=== PATIENT | female | born 1975 | race Caucasian/White ===

== ENCOUNTER 2019-06-01 08:49 | Outpatient (CLI) | payer OTHER ==
[2019-06-01 09:56] LABS: BASOPHILS % (AUTO) 0.8 % (0-1); EOSINOPHILS % (AUTO) 0.9 % (0-6); HEMATOCRIT 36.8 % (35.0-45.0); HEMOGLOBIN 12.4 g/dl (12.0-16.0); LYMPHOCYTES # (AUTO) 2.1 X10'3 (1.1-4.8); LYMPHOCYTES % (AUTO) 37.2 % (21-51); MEAN CORPUSCULAR HEMOGLOBIN 28.8 PG (27.0-31.0); MEAN CORPUSCULAR HGB CONC 33.6 g/dL (33.0-36.5); MEAN CORPUSCULAR VOLUME 85.6 FL (78-98); MEAN PLATELET VOLUME 7.4 FL (7.4-10.4); MONOCYTES # (AUTO) 0.3 X10'3 (0-0.9); NEUTROPHILS # (AUTO) 3.1 X10'3 (1.8-7.7); NEUTROPHILS % (AUTO) 55.1 % (42-75); PLATELET COUNT 228 X10'3 (140-440); RED BLOOD COUNT 4.29 X10'6 (4.20-5.60); RED CELL DISTRIBUTION WIDTH 13.9 % (11.5-14.5); WHITE BLOOD COUNT 5.6 X10'3 (4.5-11.0)
[2019-06-02 09:24] LABS: THIIODOTHRONINE, FREE, SERUM 2.5 pg/mL (2.0-4.4); THYROXINE (T4) 7.3 ug/dL (4.5-12.0); TRIIODOTHYRONINE (T3) 81 ng/dL (71-180)
== END 2019-06-01 23:59 | disposition home or self-care (01) ==
LOC: LAB 08:49
PROVIDERS: ATTEND Specialist
DX: E03.9 Hypothyroidism, unspecified (principal); D64.9 Anemia, unspecified; R79.89 Other specified abnormal findings of blood chemistry
CPT/HCPCS: 36415; 82728; 84436; 84439; 84443; 84479; 84480; 84481; 84482; 85025

== ENCOUNTER 2019-09-14 09:31 | Outpatient (CLI) | payer OTHER ==
[2019-09-14 10:06] LABS: BASOPHILS % (AUTO) 0.5 % (0-1); EOSINOPHILS # (AUTO) 0.1 X10'3 (0-0.9); EOSINOPHILS % (AUTO) 0.8 % (0-6); HEMATOCRIT 36.7 % (35.0-45.0); HEMOGLOBIN 12.3 g/dl (12.0-16.0); LYMPHOCYTES # (AUTO) 1.8 X10'3 (1.1-4.8); LYMPHOCYTES % (AUTO) 28.3 % (21-51); MEAN CORPUSCULAR HEMOGLOBIN 28.2 PG (27.0-31.0); MEAN CORPUSCULAR HGB CONC 33.4 g/dL (33.0-36.5); MEAN CORPUSCULAR VOLUME 84.4 FL (78-98); MEAN PLATELET VOLUME 7.5 FL (7.4-10.4); MONOCYTES # (AUTO) 0.4 X10'3 (0-0.9); MONOCYTES % (AUTO) 5.5 % (2-12); NEUTROPHILS # (AUTO) 4.2 X10'3 (1.8-7.7); NEUTROPHILS % (AUTO) 64.9 % (42-75); PLATELET COUNT 266 X10'3 (140-440); RED BLOOD COUNT 4.35 X10'6 (4.20-5.60); RED CELL DISTRIBUTION WIDTH 13.2 % (11.5-14.5); WHITE BLOOD COUNT 6.5 X10'3 (4.5-11.0)
[2019-09-14 10:53] LABS: % IRON SATURATION 19 % (11-46); IRON 58 UG/DL (49-151); TOTAL IRON BINDING CAPACITY 310 UG/DL (259-388)
[2019-09-14 11:23] LABS: ALANINE AMINOTRANSFERASE 25 U/L (12-78); ALBUMIN 3.8 G/DL (3.4-5.0); ALBUMIN/GLOBULIN RATIO 1.2 (1.1-1.5); ALKALINE PHOSPHATASE 47 IU/L (46-116); ANION GAP 7 (8-16); ASPARTATE AMINO TRANSFERASE 16 U/L (10-37); BILIRUBIN,TOTAL 0.8 MG/DL (0.1-1.0); BLOOD UREA NITROGEN 14 MG/DL (7-18); BUN/CREATININE RATIO 19.2 (6.6-38.0); CALCIUM 8.7 MG/DL (8.5-10.1); CHLORIDE 107 MMOL/L (99-107); CREATININE 0.73 MG/DL (0.40-0.90); FERRITIN 18 NG/ML (8-252); GLUCOSE 86 MG/DL (70-104); POTASSIUM 4.4 MMOL/L (3.5-5.1); SODIUM 141 MMOL/L (135-145); TOTAL CARBON DIOXIDE 27.3 MMOL/L (24-32); TOTAL PROTEIN 7.1 G/DL (6.4-8.2); eGFR 87 ML/MIN
[2019-09-15 08:14] LABS: THIIODOTHRONINE, FREE, SERUM 2.4 pg/mL (2.0-4.4)
== END 2019-09-14 23:59 | disposition home or self-care (01) ==
LOC: LAB 09:31
PROVIDERS: ATTEND Specialist
DX: N92.0 Excessive and frequent menstruation with regular cycle (principal); D64.9 Anemia, unspecified; E03.9 Hypothyroidism, unspecified
CPT/HCPCS: 36415; 80053; 82728; 83540; 83550; 84439; 84443; 84479; 84481; 84482; 85025

== ENCOUNTER 2020-01-11 09:36 | Outpatient (CLI) | payer OTHER ==
[2020-01-11 10:58] LABS: BASOPHILS % (AUTO) 0.7 % (0-1); EOSINOPHILS % (AUTO) 0.5 % (0-6); HEMATOCRIT 39.1 % (35.0-45.0); HEMOGLOBIN 12.7 g/dl (12.0-16.0); LYMPHOCYTES # (AUTO) 1.8 X10'3 (1.1-4.8); LYMPHOCYTES % (AUTO) 33.9 % (21-51); MEAN CORPUSCULAR HEMOGLOBIN 27.7 PG (27.0-31.0); MEAN CORPUSCULAR HGB CONC 32.5 g/dL (33.0-36.5); MEAN CORPUSCULAR VOLUME 85.4 FL (78-98); MEAN PLATELET VOLUME 7.8 FL (7.4-10.4); MONOCYTES # (AUTO) 0.4 X10'3 (0-0.9); MONOCYTES % (AUTO) 7.9 % (2-12); PLATELET COUNT 243 X10'3 (140-440); RED BLOOD COUNT 4.58 X10'6 (4.20-5.60); RED CELL DISTRIBUTION WIDTH 14.6 % (11.5-14.5); WHITE BLOOD COUNT 5.2 X10'3 (4.5-11.0)
[2020-01-11 11:15] LABS: % IRON SATURATION 11 % (11-46); IRON 33 UG/DL (49-151); TOTAL IRON BINDING CAPACITY 313 UG/DL (259-388)
[2020-01-11 11:33] LABS: ALANINE AMINOTRANSFERASE 23 U/L (12-78); ALBUMIN/GLOBULIN RATIO 1.2 (1.1-1.5); ALKALINE PHOSPHATASE 48 IU/L (46-116); ANION GAP 7 (8-16); ASPARTATE AMINO TRANSFERASE 19 U/L (10-37); BILIRUBIN,TOTAL 0.8 MG/DL (0.1-1.0); BLOOD UREA NITROGEN 16 MG/DL (7-18); BUN/CREATININE RATIO 20.8 (6.6-38.0); CALCIUM 8.9 MG/DL (8.5-10.1); CHLORIDE 107 MMOL/L (99-107); CREATININE 0.77 MG/DL (0.40-0.90); FERRITIN 16 NG/ML (8-252); GLUCOSE 90 MG/DL (70-104); POTASSIUM 4.4 MMOL/L (3.5-5.1); SODIUM 142 MMOL/L (135-145); TOTAL CARBON DIOXIDE 27.6 MMOL/L (24-32); TOTAL PROTEIN 7.3 G/DL (6.4-8.2); eGFR 81 ML/MIN
== END 2020-01-11 23:59 | disposition home or self-care (01) ==
LOC: LAB 09:36
PROVIDERS: ATTEND Specialist
DX: E03.9 Hypothyroidism, unspecified (principal); E34.9 Endocrine disorder, unspecified; N92.0 Excessive and frequent menstruation with regular cycle; D64.9 Anemia, unspecified
CPT/HCPCS: 36415; 80053; 82728; 83540; 83550; 84479; 84482; 85025

== ENCOUNTER 2020-03-07 09:04 | Outpatient (CLI) | payer BC ==
[2020-03-07 10:34] LABS: BASOPHILS % (AUTO) 0.7 % (0-1); EOSINOPHILS # (AUTO) 0.1 X10'3 (0-0.9); EOSINOPHILS % (AUTO) 0.9 % (0-6); HEMATOCRIT 39.1 % (35.0-45.0); LYMPHOCYTES % (AUTO) 34.1 % (21-51); MEAN CORPUSCULAR HEMOGLOBIN 28.7 PG (27.0-31.0); MEAN CORPUSCULAR HGB CONC 33.2 g/dL (33.0-36.5); MEAN CORPUSCULAR VOLUME 86.3 FL (78-98); MEAN PLATELET VOLUME 7.4 FL (7.4-10.4); MONOCYTES # (AUTO) 0.4 X10'3 (0-0.9); MONOCYTES % (AUTO) 6.6 % (2-12); NEUTROPHILS # (AUTO) 3.4 X10'3 (1.8-7.7); NEUTROPHILS % (AUTO) 57.7 % (42-75); PLATELET COUNT 252 X10'3 (140-440); RED BLOOD COUNT 4.53 X10'6 (4.20-5.60); RED CELL DISTRIBUTION WIDTH 13.8 % (11.5-14.5); WHITE BLOOD COUNT 5.9 X10'3 (4.5-11.0)
[2020-03-08 17:17] LABS: ESTRADIOL 83.6 pg/mL (.); FSH, SERUM 6.6 mIU/mL (.); PROGESTERONE 21.2 ng/mL (.); PROLACTIN 3.8 ng/mL (4.8-23.3); THIIODOTHRONINE, FREE, SERUM 2.8 pg/mL (2.0-4.4); THYROID PEROXIDASE AB 11 IU/mL (0-34); THYROXINE (T4) 7.7 ug/dL (4.5-12.0)
== END 2020-03-07 23:59 | disposition home or self-care (01) ==
LOC: LAB 09:04
PROVIDERS: ATTEND Specialist
DX: E03.9 Hypothyroidism, unspecified (principal); E34.9 Endocrine disorder, unspecified; R53.83 Other fatigue; N92.0 Excessive and frequent menstruation with regular cycle
CPT/HCPCS: 36415; 82627; 82670; 82679; 82728; 83001; 83002; 83540; 83550; 84140; 84144; 84146; 84305; 84402; 84403; 84436; 84439; 84443; 84479; 84481; 84482; 85025; 86376

== ENCOUNTER 2020-07-18 10:38 | Outpatient (CLI) | payer BC ==
[2020-07-18 12:42] LABS: BASOPHILS % (AUTO) 0.6 % (0-1); EOSINOPHILS % (AUTO) 0.6 % (0-6); HEMOGLOBIN 12.5 g/dl (12.0-16.0); LYMPHOCYTES % (AUTO) 29.3 % (21-51); MEAN CORPUSCULAR HEMOGLOBIN 28.4 PG (27.0-31.0); MEAN CORPUSCULAR HGB CONC 32.9 g/dL (33.0-36.5); MEAN CORPUSCULAR VOLUME 86.4 FL (78-98); MEAN PLATELET VOLUME 7.7 FL (7.4-10.4); MONOCYTES # (AUTO) 0.5 X10'3 (0-0.9); MONOCYTES % (AUTO) 7.5 % (2-12); NEUTROPHILS # (AUTO) 4.3 X10'3 (1.8-7.7); PLATELET COUNT 263 X10'3 (140-440); RED BLOOD COUNT 4.39 X10'6 (4.20-5.60); RED CELL DISTRIBUTION WIDTH 14.3 % (11.5-14.5); WHITE BLOOD COUNT 6.9 X10'3 (4.5-11.0)
[2020-07-18 13:10] LABS: % IRON SATURATION 14 % (11-46); IRON 41 UG/DL (49-151); TOTAL IRON BINDING CAPACITY 291 UG/DL (259-388)
[2020-07-18 13:19] LABS: ALANINE AMINOTRANSFERASE 25 U/L (12-78); ALBUMIN 4.1 G/DL (3.4-5.0); ALBUMIN/GLOBULIN RATIO 1.2 (1.1-1.5); ALKALINE PHOSPHATASE 48 IU/L (46-116); ANION GAP 8 (8-16); ASPARTATE AMINO TRANSFERASE 14 U/L (10-37); BILIRUBIN,TOTAL 0.6 MG/DL (0.1-1.0); BLOOD UREA NITROGEN 22 MG/DL (7-18); BUN/CREATININE RATIO 29.3 (6.6-38.0); CALCIUM 8.6 MG/DL (8.5-10.1); CHLORIDE 107 MMOL/L (99-107); CREATININE 0.75 MG/DL (0.40-0.90); FERRITIN 27 NG/ML (8-252); GLUCOSE 75 MG/DL (70-104); SODIUM 142 MMOL/L (135-145); TOTAL CARBON DIOXIDE 26.6 MMOL/L (24-32); TOTAL PROTEIN 7.5 G/DL (6.4-8.2); eGFR 84 ML/MIN
[2020-07-19 15:06] LABS: FSH, SERUM 4.9 mIU/mL (.); LUTEINIZING HORMONE 8.6 mIU/mL (.); PROGESTERONE 19.9 ng/mL (.); PROLACTIN 3.6 ng/mL (4.8-23.3); THIIODOTHRONINE, FREE, SERUM 2.5 pg/mL (2.0-4.4); THYROID PEROXIDASE AB <9 IU/mL (0-34); THYROXINE (T4) 6.8 ug/dL (4.5-12.0); TRIIODOTHYRONINE (T3) 67 ng/dL (71-180)
== END 2020-07-18 23:59 | disposition home or self-care (01) ==
LOC: EEVIPCON 10:38 → LAB 10:38
PROVIDERS: ATTEND Specialist
DX: E34.9 Endocrine disorder, unspecified (principal); E03.9 Hypothyroidism, unspecified
CPT/HCPCS: 36415; 80053; 82306; 82627; 82670; 82679; 82728; 83001; 83002; 83540; 83550; 84140; 84144; 84146; 84402; 84403; 84436; 84439; 84443; 84480; 84481; 84482; 85025; 86376

== ENCOUNTER 2020-12-28 10:24 | Outpatient (CLI) | payer BC ==
[2020-12-29 10:28] LABS: THIIODOTHRONINE, FREE, SERUM 2.5 pg/mL (2.0-4.4); THYROXINE (T4) 6.5 ug/dL (4.5-12.0); TRIIODOTHYRONINE (T3) 82 ng/dL (71-180)
== END 2020-12-28 23:59 | disposition home or self-care (01) ==
LOC: LAB 10:24
PROVIDERS: ATTEND Specialist
DX: E03.9 Hypothyroidism, unspecified (principal); E84.9 Cystic fibrosis, unspecified
CPT/HCPCS: 36415; 82627; 82728; 84402; 84403; 84436; 84439; 84443; 84480; 84481; 84482

== ENCOUNTER 2022-01-08 08:16 | Outpatient (CLI) | payer BC | END 2022-01-08 23:59 | disposition home or self-care (01) | LOC: LAB 08:16 | PROVIDERS: ATTEND Specialist | DX: E34.9 Endocrine disorder, unspecified (principal); N92.0 Excessive and frequent menstruation with regular cycle | CPT/HCPCS: 36415; 84144 ==

== ENCOUNTER 2022-03-21 09:58 | Outpatient (CLI) | payer BC ==
[2022-03-22 07:28] LABS: FTI 1.8 (1.2-4.9); THIIODOTHRONINE, FREE, SERUM 2.2 pg/mL (2.0-4.4); THYROXINE (T4) 6.6 ug/dL (4.5-12.0); TRIIODOTHYRONINE (T3) 73 ng/dL (71-180)
== END 2022-03-21 23:59 | disposition home or self-care (01) ==
LOC: LAB 09:58
PROVIDERS: ATTEND Specialist
DX: D64.9 Anemia, unspecified (principal); E03.9 Hypothyroidism, unspecified; E55.9 Vitamin D deficiency, unspecified; R53.82 Chronic fatigue, unspecified
CPT/HCPCS: 36415; 82306; 82728; 84436; 84439; 84443; 84479; 84480; 84481; 84482

== ENCOUNTER 2022-07-17 08:26 | Outpatient (CLI) | payer BC ==
[2022-07-17 09:35] LABS: BASOPHILS # (AUTO) 0.1 X10'3 (0-0.2); BASOPHILS % (AUTO) 1.4 % (0-1); EOSINOPHILS % (AUTO) 0.5 % (0-6); HEMATOCRIT 38.6 % (35.0-45.0); LYMPHOCYTES % (AUTO) 23.5 % (21-51); MEAN CORPUSCULAR HEMOGLOBIN 29.2 PG (27.0-31.0); MEAN CORPUSCULAR HGB CONC 33.6 g/dL (33.0-36.5); MEAN CORPUSCULAR VOLUME 86.9 FL (78-98); MEAN PLATELET VOLUME 7.7 FL (7.4-10.4); MONOCYTES # (AUTO) 0.5 X10'3 (0-0.9); MONOCYTES % (AUTO) 6.1 % (2-12); NEUTROPHILS # (AUTO) 5.8 X10'3 (1.8-7.7); NEUTROPHILS % (AUTO) 68.5 % (42-75); PLATELET COUNT 235 X10'3 (140-440); RED BLOOD COUNT 4.45 X10'6 (4.20-5.60); RED CELL DISTRIBUTION WIDTH 13.8 % (11.5-14.5); WHITE BLOOD COUNT 8.4 X10'3 (4.5-11.0)
[2022-07-17 09:36] LABS: CLARITY,URINE SLIGHTLY CLOUDY (Clear); COLOR,URINE YELLOW (Yellow); GLUCOSE, URINE NEGATIVE (Neg); KETONES,URINE NEGATIVE (Neg); LEUKOCYTE ESTERASE ,URINE NEGATIVE (Neg); NITRITES, URINE NEGATIVE (Neg); OCCULT BLOOD,URINE TRACE-INTACT (Neg); PROTEIN,URINE NEGATIVE (Neg); UROBILINOGEN,URINE 0.2 E.U/dL (0.2-1.0)
[2022-07-17 09:42] LABS: UA COLLECTION TYPE CLN CATCH MIDSTREAM
[2022-07-17 09:43] LABS: BACTERIA,URINE 2+ /HPF (Neg); RBC,URINE 0-2 /HPF (0-2); SQUAMOUS EPITHELIAL CELL,UR MANY /LPF (FEW); WBC,URINE 0-4 /HPF (0-4)
[2022-07-17 10:12] LABS: ALANINE AMINOTRANSFERASE 27 U/L (12-78); ALBUMIN 4.2 G/DL (3.4-5.0); ALBUMIN/GLOBULIN RATIO 1.4 (1.1-1.5); ALKALINE PHOSPHATASE 39 IU/L (46-116); ANION GAP 12 (8-16); ASPARTATE AMINO TRANSFERASE 21 U/L (10-37); BILIRUBIN,TOTAL 0.6 MG/DL (0.1-1.0); BLOOD UREA NITROGEN 18 MG/DL (7-18); BUN/CREATININE RATIO 25.7 (6.6-38.0); CALCIUM 8.4 MG/DL (8.5-10.1); CHLORIDE 104 MMOL/L (99-107); CHOL/HDL RATIO 1.9 (0.00-4.99); CHOLESTEROL 177 MG/DL (0-200); GLUCOSE 91 MG/DL (70-104); HDL CHOLESTEROL 94 MG/DL (35-60); LDL CHOLESTEROL 79 MG/DL (50-100); POTASSIUM 3.9 MMOL/L (3.5-5.1); SODIUM 137 MMOL/L (135-145); TOTAL CARBON DIOXIDE 21.4 MMOL/L (24-32); TOTAL PROTEIN 7.2 G/DL (6.4-8.2); TRIGLYCERIDES 27 MG/DL (20-135); eGFR 90 ML/MIN
== END 2022-07-17 23:59 | disposition home or self-care (01) ==
LOC: LAB 08:26
PROVIDERS: ATTEND Nurse Practitioner
DX: Z00.00 Encounter for general adult medical examination without abnormal findings (principal); Z12.39 Encounter for other screening for malignant neoplasm of breast
CPT/HCPCS: 36415; 80053; 80061; 81001; 82306; 82607; 82746; 84439; 84443; 85025

== ENCOUNTER 2022-07-17 08:33 | Outpatient (CLI) | payer BC ==
[2022-07-17 10:19] LABS: % IRON SATURATION 12 % (11-46); IRON 37 UG/DL (49-151); TOTAL IRON BINDING CAPACITY 321 UG/DL (259-388)
[2022-07-17 10:54] LABS: FERRITIN 35 NG/ML (8-252)
[2022-07-18 13:15] LABS: THIIODOTHRONINE, FREE, SERUM 2.4 pg/mL (2.0-4.4); THYROXINE (T4) 7.4 ug/dL (4.5-12.0); TRIIODOTHYRONINE (T3) 74 ng/dL (71-180)
== END 2022-07-17 23:59 | disposition home or self-care (01) ==
LOC: LAB 08:33
PROVIDERS: ATTEND Specialist
DX: D64.9 Anemia, unspecified (principal); E03.9 Hypothyroidism, unspecified; N92.0 Excessive and frequent menstruation with regular cycle; N94.6 Dysmenorrhea, unspecified
CPT/HCPCS: 36415; 82728; 83540; 83550; 84436; 84480; 84481; 84482

== ENCOUNTER 2022-12-26 09:20 | Outpatient (CLI) | payer BC ==
[2022-12-26 10:33] LABS: BASOPHILS % (AUTO) 0.5 % (0-1); EOSINOPHILS % (AUTO) 0.6 % (0-6); HEMATOCRIT 38.4 % (35.0-45.0); HEMOGLOBIN 12.5 g/dl (12.0-16.0); LYMPHOCYTES % (AUTO) 31.2 % (21-51); MEAN CORPUSCULAR HEMOGLOBIN 28.1 PG (27.0-31.0); MEAN CORPUSCULAR HGB CONC 32.5 g/dL (33.0-36.5); MEAN CORPUSCULAR VOLUME 86.5 FL (78-98); MEAN PLATELET VOLUME 7.2 FL (7.4-10.4); MONOCYTES # (AUTO) 0.4 X10'3 (0-0.9); MONOCYTES % (AUTO) 6.7 % (2-12); NEUTROPHILS # (AUTO) 3.8 X10'3 (1.8-7.7); PLATELET COUNT 270 X10'3 (140-440); RED BLOOD COUNT 4.44 X10'6 (4.20-5.60); RED CELL DISTRIBUTION WIDTH 13.9 % (11.5-14.5); WHITE BLOOD COUNT 6.3 X10'3 (4.5-11.0)
[2022-12-26 11:03] LABS: % IRON SATURATION 25 % (11-46); IRON 76 UG/DL (49-151); TOTAL IRON BINDING CAPACITY 310 UG/DL (259-388)
[2022-12-26 11:05] LABS: ALANINE AMINOTRANSFERASE 26 U/L (12-78); ALBUMIN/GLOBULIN RATIO 1.3 (1.1-1.5); ALKALINE PHOSPHATASE 42 IU/L (46-116); ANION GAP 6 (8-16); ASPARTATE AMINO TRANSFERASE 17 U/L (10-37); BILIRUBIN,TOTAL 0.8 MG/DL (0.1-1.0); BLOOD UREA NITROGEN 14 MG/DL (7-18); BUN/CREATININE RATIO 18.7 (10.0-20.0); CALCIUM 8.7 MG/DL (8.5-10.1); CHLORIDE 104 MMOL/L (99-107); CREATININE 0.75 MG/DL (0.40-0.90); FERRITIN 29 NG/ML (8-252); GLUCOSE 87 MG/DL (70-104); SODIUM 137 MMOL/L (135-145); TOTAL CARBON DIOXIDE 26.6 MMOL/L (24-32); eGFR 83 ML/MIN
[2022-12-27 17:14] LABS: FSH, SERUM 3.9 mIU/mL (.); LUTEINIZING HORMONE 9.9 mIU/mL (.); PROGESTERONE 26.6 ng/mL (.); THIIODOTHRONINE, FREE, SERUM 2.6 pg/mL (2.0-4.4); THYROID PEROXIDASE AB <9 IU/mL (0-34); THYROXINE (T4) 7.8 ug/dL (4.5-12.0); TRIIODOTHYRONINE (T3) 86 ng/dL (71-180)
== END 2022-12-26 23:59 | disposition home or self-care (01) ==
LOC: LAB 09:20
PROVIDERS: ATTEND Specialist
DX: E61.1 Iron deficiency (principal); E03.9 Hypothyroidism, unspecified; E34.9 Endocrine disorder, unspecified; D64.9 Anemia, unspecified; E28.0 Estrogen excess; E55.9 Vitamin D deficiency, unspecified; F43.0 Acute stress reaction
CPT/HCPCS: 36415; 80053; 82306; 82607; 82627; 82670; 82728; 82746; 83001; 83002; 83540; 83550; 84140; 84144; 84305; 84402; 84403; 84436; 84439; 84480; 84481; 84482; 85025; 86376

== ENCOUNTER 2023-07-03 10:30 | Outpatient (CLI) | payer BC ==
[2023-07-03 11:30] LABS: FREE T4 (FREE THYROXINE) 0.98 NG/DL (0.73-1.40); THYROID STIMULATING HORMONE 1.43 ulU/ml (0.34-4.50)
== END 2023-07-03 23:59 | disposition home or self-care (01) ==
LOC: LAB 10:30
PROVIDERS: ATTEND Specialist
DX: Z39.2 Encounter for routine postpartum follow-up (principal); E03.9 Hypothyroidism, unspecified; D64.9 Anemia, unspecified
CPT/HCPCS: 36415; 82306; 82728; 84439; 84443; 84479; 84481; 84482

== ENCOUNTER 2023-12-18 08:21 | Outpatient (CLI) | payer BC ==
[2023-12-18 09:29] LABS: BASOPHILS % (AUTO) 0.6 % (0-1); EOSINOPHILS % (AUTO) 0.4 % (0-6); HEMATOCRIT 37.8 % (35.0-45.0); HEMOGLOBIN 12.5 g/dl (12.0-16.0); HEMOGLOBIN A1C 5.1 % (4.5-6.2); LYMPHOCYTES # (AUTO) 1.7 X10'3 (1.1-4.8); LYMPHOCYTES % (AUTO) 25.2 % (21-51); MEAN CORPUSCULAR HEMOGLOBIN 28.6 PG (27.0-31.0); MEAN CORPUSCULAR HGB CONC 33.1 g/dL (33.0-36.5); MEAN CORPUSCULAR VOLUME 86.4 FL (78-98); MEAN PLATELET VOLUME 7.6 FL (7.4-10.4); MONOCYTES # (AUTO) 0.5 X10'3 (0-0.9); NEUTROPHILS # (AUTO) 4.6 X10'3 (1.8-7.7); NEUTROPHILS % (AUTO) 66.8 % (42-75); PLATELET COUNT 246 X10'3 (140-440); RED BLOOD COUNT 4.37 X10'6 (4.20-5.60); RED CELL DISTRIBUTION WIDTH 13.5 % (11.5-14.5); WHITE BLOOD COUNT 6.8 X10'3 (4.5-11.0)
[2023-12-18 09:44] LABS: ALANINE AMINOTRANSFERASE 26 U/L (12-78); ALBUMIN 3.7 G/DL (3.4-5.0); ALBUMIN/GLOBULIN RATIO 1.1 (1.1-1.5); ALKALINE PHOSPHATASE 43 IU/L (46-116); ANION GAP 6 (8-16); ASPARTATE AMINO TRANSFERASE 13 U/L (10-37); BILIRUBIN,TOTAL 0.9 MG/DL (0.1-1.0); BLOOD UREA NITROGEN 19 MG/DL (7-18); BUN/CREATININE RATIO 26.4 (10.0-20.0); CALCIUM 8.6 MG/DL (8.5-10.1); CHLORIDE 103 MMOL/L (99-107); CREATININE 0.72 MG/DL (0.40-0.90); FERRITIN 33 NG/ML (8-252); FREE T4 (FREE THYROXINE) 0.87 NG/DL (0.73-1.40); GLUCOSE 87 MG/DL (70-104); SODIUM 135 MMOL/L (135-145); THYROID STIMULATING HORMONE 1.42 ulU/ml (0.34-4.50); TOTAL CARBON DIOXIDE 26.1 MMOL/L (24-32); TOTAL PROTEIN 7.1 G/DL (6.4-8.2); eGFR 86 ML/MIN
[2023-12-18 09:49] LABS: % IRON SATURATION 18 % (11-46); IRON 51 UG/DL (49-151); TOTAL IRON BINDING CAPACITY 285 UG/DL (259-388)
[2023-12-19 16:50] LABS: C-PEPTIDE, SERUM 1.2 ng/mL (1.1-4.4); DEHYDROEPIANDROSTERONE SULFATE 76.2 ug/dL (41.2-243.7); FOLATE SERUM(FOLIC) >20.0 ng/mL (>3.0); FSH, SERUM 5.9 mIU/mL (.); INSULIN 3.4 uIU/mL (2.6-24.9); LUTEINIZING HORMONE 12.8 mIU/mL (.); PROGESTERONE 6.1 ng/mL (.); PROLACTIN 4.9 ng/mL (4.8-33.4); TESTOSTERONE, SERUM 16 ng/dL (4-50); THIIODOTHRONINE, FREE, SERUM 2.2 pg/mL (2.0-4.4); THYROXINE (T4) 6.8 ug/dL (4.5-12.0); TRIIODOTHYRONINE (T3) 70 ng/dL (71-180)
[2023-12-20 11:58] LABS: ANTITHYROGLOBULIN AB <1.0 IU/mL (0.0-0.9)
== END 2023-12-18 23:59 | disposition home or self-care (01) ==
LOC: RAD 08:21
PROVIDERS: ATTEND Specialist
DX: D64.9 Anemia, unspecified (principal); E34.9 Endocrine disorder, unspecified; E03.9 Hypothyroidism, unspecified; N92.0 Excessive and frequent menstruation with regular cycle; R51.9 Headache, unspecified
CPT/HCPCS: 36415; 80053; 82607; 82627; 82670; 82728; 82746; 83001; 83002; 83036; 83525; 83540; 83550; 84144; 84146; 84402; 84403; 84436; 84439; 84443; 84480; 84481; 84482; 84681; 85025; 86800

== ENCOUNTER 2024-04-22 09:22 | Outpatient (CLI) | payer BC ==
[2024-04-22 10:18] LABS: FREE T4 (FREE THYROXINE) 0.99 NG/DL (0.73-1.40); THYROID STIMULATING HORMONE 0.79 ulU/ml (0.34-4.50)
[2024-04-24 05:36] LABS: DEHYDROEPIANDROSTERONE SULFATE 71.4 ug/dL (41.2-243.7); TESTOSTERONE, SERUM 5 ng/dL (4-50); THIIODOTHRONINE, FREE, SERUM 2.6 pg/mL (2.0-4.4); THYROID PEROXIDASE AB 10 IU/mL (0-34); THYROXINE (T4) 6.7 ug/dL (4.5-12.0); TRIIODOTHYRONINE (T3) 71 ng/dL (71-180)
== END 2024-04-22 23:59 | disposition home or self-care (01) ==
LOC: RAD 09:22
PROVIDERS: ATTEND Chiropractor
DX: E34.9 Endocrine disorder, unspecified (principal); E03.9 Hypothyroidism, unspecified
CPT/HCPCS: 36415; 82627; 82728; 84305; 84402; 84403; 84436; 84439; 84443; 84480; 84481; 84482; 86376

== ENCOUNTER 2024-10-27 10:10 | Outpatient (CLI) | payer BC ==
[2024-10-27 11:23] LABS: FREE T4 (FREE THYROXINE) 0.73 NG/DL (0.73-1.40); THYROID STIMULATING HORMONE 0.67 ulU/ml (0.34-4.50)
== END 2024-10-27 23:59 | disposition home or self-care (01) ==
LOC: LAB 10:10
PROVIDERS: ATTEND Specialist
DX: E34.9 Endocrine disorder, unspecified (principal); E23.0 Hypopituitarism; D64.9 Anemia, unspecified; E03.9 Hypothyroidism, unspecified
CPT/HCPCS: 36415; 82627; 82670; 82679; 82728; 83540; 83550; 84144; 84402; 84403; 84439; 84443; 84481; 84482; 86376

== ENCOUNTER 2025-01-18 07:44 | Outpatient (CLI) | payer BC ==
[2025-01-18 08:41] LABS: % IRON SATURATION 12 % (11-46)
[2025-01-18 08:49] LABS: CREATININE 0.70 MG/DL (0.40-0.90); TOTAL CARBON DIOXIDE 28.3 MMOL/L (24-32); eGFR 89 ML/MIN
[2025-01-19 05:17] LABS: VITAMIN D, 25-HYDROXY 88.7 ng/mL (30.0-100.0)
[2025-01-19 06:12] LABS: FOLATE SERUM(FOLIC) >20.0 ng/mL (>3.0)
[2025-01-19 07:11] LABS: DEHYDROEPIANDROSTERONE SULFATE 63.6 ug/dL (41.2-243.7); ESTRADIOL 274.0 pg/mL (.); PROGESTERONE 1.3 ng/mL (.); TESTOSTERONE, SERUM 21 ng/dL (4-50); THIIODOTHRONINE, FREE, SERUM 2.7 pg/mL (2.0-4.4); THYROXINE (T4) 5.8 ug/dL (4.5-12.0); TRIIODOTHYRONINE (T3) 95 ng/dL (71-180)
== END 2025-01-18 23:59 | disposition home or self-care (01) ==
LOC: LAB 07:44
PROVIDERS: ATTEND Specialist
DX: E34.9 Endocrine disorder, unspecified (principal); E23.0 Hypopituitarism; D64.9 Anemia, unspecified; E03.9 Hypothyroidism, unspecified
CPT/HCPCS: 36415; 80053; 82306; 82607; 82627; 82670; 82679; 82728; 82746; 83540; 83550; 84140; 84144; 84402; 84403; 84436; 84439; 84443; 84480; 84481; 84482

== ENCOUNTER 2025-05-11 09:23 | Outpatient (CLI) | payer BC ==
[2025-05-11 10:22] LABS: MEAN PLATELET VOLUME 7.3 FL (7.4-10.4); RED CELL DISTRIBUTION WIDTH 13.4 % (11.5-14.5)
[2025-05-11 10:39] LABS: CREATININE 0.64 MG/DL (0.40-0.90); TOTAL CARBON DIOXIDE 29.9 MMOL/L (24-32); eGFR > 90 ML/MIN
[2025-05-11 11:03] LABS: % IRON SATURATION 16 % (11-46)
[2025-05-12 11:19] LABS: ESTRADIOL 297.0 pg/mL (.); FSH, SERUM 16.4 mIU/mL (.); LUTEINIZING HORMONE 32.6 mIU/mL (.); PROGESTERONE 1.6 ng/mL (.); TESTOSTERONE, SERUM 9 ng/dL (4-50); THIIODOTHRONINE, FREE, SERUM 2.4 pg/mL (2.0-4.4); THYROID PEROXIDASE AB 10 IU/mL (0-34); THYROXINE (T4) 6.2 ug/dL (4.5-12.0); TRIIODOTHYRONINE (T3) 81 ng/dL (71-180); VITAMIN D, 25-HYDROXY 85.4 ng/mL (30.0-100.0)
[2025-05-13 19:13] LABS: ANTITHYROGLOBULIN AB <1.0 IU/mL (0.0-0.9)
== END 2025-05-11 23:59 | disposition home or self-care (01) ==
LOC: LAB 09:23
PROVIDERS: ATTEND Specialist
DX: E55.9 Vitamin D deficiency, unspecified (principal); R25.2 Cramp and spasm; E03.9 Hypothyroidism, unspecified; D64.9 Anemia, unspecified; E23.0 Hypopituitarism
CPT/HCPCS: 36415; 80053; 82306; 82607; 82670; 82679; 82728; 82746; 83001; 83002; 83540; 83550; 83735; 84140; 84144; 84402; 84403; 84436; 84439; 84443; 84480; 84481; 84482; 85025; 86376; 86800